=== PATIENT | male | born 1965 | race Caucasian/White ===

== ENCOUNTER 2018-06-01 14:47 | Inpatient (IN) | payer OTHER ==
[~2018-06-01] VITALS: Ht 175.3 cm; Wt 128.1 kg
[2018-06-01] MEDS ORDERED: ONDANSETRON PF 4 MG/2 ML VIAL. IV PRN (15:00)
[2018-06-01 15:05] VITALS: BP 113/81
[2018-06-01] MEDS: VANCOMYCIN PER PHARMACY MC PRN (15:08)
[2018-06-01] MEDS ORDERED: VALS80TA3 PO (16:44)
[2018-06-01] MEDS ORDERED: LOVA40TA2 PO (16:44)
[2018-06-01] MEDS ORDERED: HYDR12.58 PO (16:44)
[2018-06-01] MEDS: IV NORMAL SALINE 1,000ML 1,000 ML IV SCH ×2 (18:07→23:12)
[2018-06-01] MEDS ORDERED: ZOLPIDEM 5 MG TABLET. PO PRN (18:30)
[2018-06-01 19:48] VITALS: BP 113/76
[2018-06-01] MEDS: ACETAMINOPHEN 325 MG TABLET PO PRN (19:58)
[2018-06-01 23:25] VITALS: BP 124/78
[2018-06-02] MEDS: ACETAMINOPHEN 325 MG TABLET PO PRN ×2 (00:20→06:08)
[2018-06-02] MEDS: IV NORMAL SALINE 1,000ML 1,000 ML IV SCH ×3 (06:09→20:35)
[2018-06-02 06:11] VITALS: BP 127/87
[2018-06-02 06:47] LABS: BASO # 0.1 x10^3/uL (0.0-0.2); BASO % 0 % (0-3); EOS % 0 % (0-3); HEMATOCRIT 43.2 % (39.0-53.0); HEMOGLOBIN 14.3 g/dL (13.0-17.5); LYMPH # 1.3 x10^3/uL (1.0-4.8); LYMPH % 7 % (24-48); MEAN CORPUSCULAR HEMOGLOBIN 30 pg (25-35); MEAN CORPUSCULAR HGB CONC 33 g/dL (31-37); MEAN CORPUSCULAR VOLUME 91 fL (79-100); MONO # 1.1 x10^3/uL (0.0-1.1); MONO % 5 % (0-9); NEUT # 17.2 x10^3uL (1.8-7.7); NEUT % 88 % (31-73); PLATELET COUNT 148 x10^3/uL (140-400); RED BLOOD COUNT 4.74 x10^6/uL (4.30-5.70); RED CELL DISTRIBUTION WIDTH 15.4 % (11.5-14.5); WHITE BLOOD COUNT 19.6 x10^3/uL (4.0-11.0)
[2018-06-02 07:13] LABS: CALCIUM 8.1 mg/dL (8.5-10.1); CREATININE 1.6 mg/dL (0.7-1.3); GFR 45.1; POTASSIUM 3.8 mmol/L (3.5-5.1)
[2018-06-02] MEDS: oxyCODONE/APAP 7.5/325 1 TAB TABLET PO PRN ×3 (08:11→20:33)
[2018-06-02] MEDS: hydroCHLOROthiazide 12.5 MG CAPSULE PO SCH (08:40)
[2018-06-02] MEDS: amLODIPine BESYLATE 10 MG TABLET PO SCH ×2 (08:41→09:00)
[2018-06-02] MEDS: LOSARTAN 50 MG TABLET. PO SCH (08:42)
[2018-06-02] MEDS ORDERED: NON FORMULARY ITEM (Hydrochlorothiazide (Hydrochlorothiazide Tablet) 1 TAB) PO SCH (09:00)
--- NOTE | 2018-06-02 10:55 | PN ---
DATE: 06/02/2018 SUBJECTIVE: The patient is in with lymphangitis and cellulitis to the right lower leg as well as sepsis. The patient is on double antibiotics of vancomycin and Levaquin since he is allergic to PENICILLIN. He says he is feeling better. PHYSICAL EXAMINATION: His temperature is still up there about 100.4, pulse up to 112, blood pressure 120/70, respiratory rate 18, afebrile. GENERAL: The patient is alert and oriented x 3. LUNGS: Clear. CARDIOVASCULAR: Stable. EXTREMITIES: Redness in the right lower leg really has not moved too much one way or the other. Continue on IV antibiotic therapy. ABDOMEN: Soft, nontender. Blood cultures are still pending. He had a white count yesterday still elevated at 19,000 with left shift. Continue with IV antibiotic therapy, aggressive situation there with his anticoagulation, I should say. A V/Q scan is still pending. Positive D-dimer. I also ordered a V/Q scan as well as venous Dopplers. IMPRESSION: Cellulitis to the right lower leg, sepsis, lymphangitis of the right leg, positive D-dimer. PLAN: Continue to monitor the patient. Continue aggressive pulmonary toilet and IV antibiotic therapy. MAX HOLMAN MD DR: BRAULIO/ev JOB#: [id number] / [id number]
[2018-06-02 11:00] VITALS: BP 137/93
--- NOTE | 2018-06-02 12:09 | RAD ---
EXAM: Right lower extremity venous Doppler sonogram. HISTORY: Swelling. TECHNIQUE: Sánchez scale and color Doppler sonographic evaluation of the right lower extremity veins with spectral waveform analysis was performed. FINDINGS: There is normal color flow, normal compressibility and there are normal spectral waveforms in the right lower extremity veins. There are prominent right inguinal lymph nodes. IMPRESSION: 1. No Doppler evidence of lower extremity deep venous thrombosis. 2. Prominent right inguinal lymph nodes, likely reactive in etiology. Electronically signed by: Isabel Rothman MD (06/02/2018 12:06 PM) [facility] [place]
--- NOTE | 2018-06-02 12:41 | RAD ---
Examination: 2 views of the chest HISTORY: History of elevated d-dimer, PICC line COMPARISON: 05/07/2013 FINDINGS: Low lung volumes and technique accentuates heart size and pulmonary vascularity. Mild bibasilar lung airspace opacities likely atelectasis or infiltrates. Left-sided PICC line identified with tip projecting in the region of the SVC. IMPRESSION: 1. Mild bibasilar lung airspace opacities likely atelectasis or infiltrates. Electronically signed by: Keon Salas MD (06/02/2018 12:38 PM) [facility]
--- NOTE | 2018-06-02 13:17 | RAD ---
VQ Scan: Clinical History: Elevated d-dimer COMPARISON: Radiograph same day exam.. Technique: 14.6 mCi xenon-133 inhalation was administered as an aerosol and spot views were obtained on a gamma camera for a Nuclear Medicine ventilation examination. 5.5 mCi of Tc 99m MAA was administered intravenously and spot views were obtained on the gamma camera for a Nuclear Medicine perfusion examination. Static images were reviewed as a V/Q scan. Findings: There is mild retention of the radiotracer on ventilation images of the washout phase. Perfusion images are homogeneous without perfusion defects. Impression: 1. Very low probability for pulmonary embolism. 2. Minimal retention of radiotracer on the ventilation images on the washout phase likely due to airway disease. Electronically signed by: Keon Salas MD (06/02/2018 1:13 PM) [facility]
[2018-06-02] MEDS: HEPARIN PF for SUB-Q USE 5,000 UNIT/0.5 ML VIAL. SQ SCH ×3 (13:51→22:00)
[2018-06-02] MEDS: VANCOMYCIN 2 GM in IV NORMAL SALINE 500ML 500 ML IV SCH (14:30)
[2018-06-02 15:00] VITALS: BP 135/85
[2018-06-02 19:41] VITALS: BP 132/89
[2018-06-03] MEDS: IV NORMAL SALINE 1,000ML 1,000 ML IV SCH ×3 (01:29→14:49)
[2018-06-03] MEDS: oxyCODONE/APAP 7.5/325 1 TAB TABLET PO PRN ×2 (03:39→12:08)
[2018-06-03 04:54] VITALS: BP 140/97
[2018-06-03] MEDS: HEPARIN PF for SUB-Q USE 5,000 UNIT/0.5 ML VIAL. SQ SCH ×3 (06:00→20:35)
[2018-06-03 06:14] LABS: CALCIUM 8.3 mg/dL (8.5-10.1); CREATININE 1.5 mg/dL (0.7-1.3); GFR 48.6; POTASSIUM 4.1 mmol/L (3.5-5.1)
[2018-06-03 06:18] LABS: BASO % 0 % (0-3); EOS # 0.1 x10^3/uL (0.0-0.7); EOS % 1 % (0-3); HEMATOCRIT 41.7 % (39.0-53.0); HEMOGLOBIN 13.8 g/dL (13.0-17.5); LYMPH # 1.5 x10^3/uL (1.0-4.8); LYMPH % 13 % (24-48); MEAN CORPUSCULAR HEMOGLOBIN 30 pg (25-35); MEAN CORPUSCULAR HGB CONC 33 g/dL (31-37); MEAN CORPUSCULAR VOLUME 92 fL (79-100); MONO % 10 % (0-9); NEUT # 8.4 x10^3uL (1.8-7.7); NEUT % 76 % (31-73); PLATELET COUNT 162 x10^3/uL (140-400); RED BLOOD COUNT 4.55 x10^6/uL (4.30-5.70); RED CELL DISTRIBUTION WIDTH 15.8 % (11.5-14.5)
[2018-06-03] MEDS: amLODIPine BESYLATE 10 MG TABLET PO SCH ×2 (09:00→12:09)
[2018-06-03] MEDS: LOSARTAN 50 MG TABLET. PO SCH (09:05)
[2018-06-03] MEDS: hydroCHLOROthiazide 12.5 MG CAPSULE PO SCH (09:05)
[2018-06-03 11:00] VITALS: BP 151/92
[2018-06-03 14:30] LABS: VANC TR 7.4 mcg/mL (10.0-20.0)
[2018-06-03] MEDS: VANCOMYCIN 2 GM in IV NORMAL SALINE 500ML 500 ML IV SCH ×2 (14:30→15:11)
[2018-06-03 15:00] VITALS: BP 175/133
[2018-06-03] MEDS: VANCOMYCIN PER PHARMACY MC PRN (15:13)
[2018-06-03 19:18] VITALS: BP 154/99
[2018-06-03] MEDS ORDERED: hydrALAZINE 20 MG/ML VIAL. IV PRN (19:30)
[2018-06-03] MEDS ORDERED: POLYETHYLENE GLYCOL 3350 17 GM PACKET. PO PRN (19:30)
[2018-06-03] MEDS: DOCUSATE SODIUM 100 MG CAPSULE PO SCH (20:35)
--- NOTE | 2018-06-03 21:10 | PN ---
DATE: 06/03/2018 SUBJECTIVE: This is a 53-year-old gentleman with cellulitis to his right leg in the right upper thigh with lymphangitis. He is doing better. The area of redness has decreased. White count has come down from 19,000 down to 11. OBJECTIVE: VITAL SIGNS: Blood pressure that of 175/133, pulse 85, temperature 98.1, respiratory rate 20. EXTREMITIES: As described, the area of redness is decreased significantly and showing some good signs of improvement, although still markedly inflamed in Monday. We will have him ready. PICC line is in place. Possible discharge. IMPRESSION: Cellulitis to the right leg, lymphangitis, sepsis, chronic kidney disease 3. PLAN: As above. Continue with IV antibiotic therapy. MAX HOLMAN MD DR: BRAULIO/ev JOB#: [id number] / [id number]
[2018-06-03 22:36] VITALS: BP 134/87
[2018-06-04] MEDS: VANCOMYCIN 2 GM in IV NORMAL SALINE 500ML 500 ML IV SCH ×2 (03:03→15:44)
[2018-06-04] MEDS: HEPARIN PF for SUB-Q USE 5,000 UNIT/0.5 ML VIAL. SQ SCH ×2 (05:22→14:00)
[2018-06-04 05:41] VITALS: BP 155/95
[2018-06-04] MEDS: LOSARTAN 50 MG TABLET. PO SCH (09:00)
[2018-06-04] MEDS: DOCUSATE SODIUM 100 MG CAPSULE PO SCH (09:02)
[2018-06-04] MEDS: hydroCHLOROthiazide 12.5 MG CAPSULE PO SCH (09:02)
[2018-06-04] MEDS ORDERED: VANC1VIA3 MC (09:11)
[2018-06-04] MEDS ORDERED: VANC1.5P26 IV (09:11)
[2018-06-04 09:41] LABS: BASO % 1 % (0-3); EOS # 0.1 x10^3/uL (0.0-0.7); EOS % 2 % (0-3); HEMOGLOBIN 13.5 g/dL (13.0-17.5); LYMPH % 17 % (24-48); MEAN CORPUSCULAR HEMOGLOBIN 30 pg (25-35); MEAN CORPUSCULAR HGB CONC 33 g/dL (31-37); MEAN CORPUSCULAR VOLUME 91 fL (79-100); MONO # 0.5 x10^3/uL (0.0-1.1); MONO % 8 % (0-9); NEUT # 4.3 x10^3uL (1.8-7.7); NEUT % 72 % (31-73); PLATELET COUNT 173 x10^3/uL (140-400); RED BLOOD COUNT 4.52 x10^6/uL (4.30-5.70); RED CELL DISTRIBUTION WIDTH 15.5 % (11.5-14.5)
[2018-06-04 09:45] LABS: CALCIUM 7.9 mg/dL (8.5-10.1); CREATININE 1.3 mg/dL (0.7-1.3); GFR 57.3; POTASSIUM 3.6 mmol/L (3.5-5.1)
[2018-06-04 10:29] VITALS: BP 143/88
[2018-06-04 15:12] VITALS: BP 146/94
--- NOTE | 2018-06-04 19:18 | DS ---
DATE OF DISCHARGE: 06/04/2018 HOSPITAL COURSE: A 53-year-old gentleman who came in with sepsis, lymphangitis to his right leg as well as cellulitis to the right lower leg. White count 20,000. His lactic acid was elevated at 2.2, came down. The patient's calcium was slightly low at 7.9. The patient made good progress during the rest of his hospitalization. He had been placed on vancomycin as well as Zosyn, made good progress. PICC line placed. The patient's right lower extremity negative for a blood clot, pulmonary perfusion test was negative for that low probability of embolism. The patient made excellent progress during the rest of his hospitalization. He was discharged home. He will be followed up as an outpatient and make further evaluation on him as indicated. IMPRESSION: Cellulitis to the right lower leg, sepsis to that individual secondary to infection, lymphangitis, morbid obesity, elevated D-dimer, and acute renal failure. The patient will be discharged home, regular diet, decreased activity for now. He will be coming in next 10 days for IV antibiotic therapy until that leg has healed up better. We will make further evaluation on him as indicated. MAX HOLMAN MD DR: BRAULIO/ev JOB#: [id number] / [id number]
== END 2018-06-04 18:09 | disposition home or self-care (01) | DRG 872 ==
LOC: 1 SOUTH 14:47
PROVIDERS: ADMIT Family Medicine; ATTEND Family Medicine
PROC: 02HV33Z Insertion of Infusion Device into Superior Vena Cava, Percutaneous Approach (ICD-10-PCS; principal; 2018-06-02)
DX: A41.9 Sepsis, unspecified organism (principal); L03.115 Cellulitis of right lower limb; N17.9 Acute kidney failure, unspecified; L03.125 Acute lymphangitis of right lower limb; E66.01 Morbid (severe) obesity due to excess calories; N18.3 Chronic kidney disease, stage 3 (moderate); R79.1 Abnormal coagulation profile; Z88.0 Allergy status to penicillin; Z79.899 Other long term (current) drug therapy
CPT/HCPCS: 36415; 71046; 78582; 80048; 80202; 83605; 85025; 85379; 85651; 93971; 96374; A9540; A9558; J1956; J2405; J3370; J7040; J7030

== ENCOUNTER 2019-04-08 22:35 | Observation (INO) | payer OTHER ==
[~2019-04-08] VITALS: Ht 175.3 cm; Wt 128.2 kg
[~2019-04-08 22:35] MED LIST: HYDR12.58 PO; LOVA40TA2 PO; VALS80TA3 PO; VANC1VIA3 MC; [UNRECOGNIZED DRUG - CODE] IV
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
[2019-04-08] MEDS ORDERED: MORPHINE SULFATE 10 MG/ML SYRINGE. SQ ONE (23:00)
[2019-04-08] MEDS ORDERED: IV RINGERS SOLUTION,LACTATED 1,000 ML IV SCH ×2 (23:00)
[2019-04-08] MEDS ORDERED: IPRATRPIUM/ALBUTEROL 0.5/2.5MG 3 ML NEBU. NEB ONE (23:00)
[2019-04-08] MEDS ORDERED: ASPIRIN 81 MG TAB.CHEW PO ONE (23:00)
[2019-04-08 23:53] LABS: BASO # 0.1 x10^3/uL (0.0-0.2); BASO % 1 % (0-3); EOS # 0.1 x10^3/uL (0.0-0.7); EOS % 1 % (0-3); HEMATOCRIT 49.1 % (39.0-53.0); LYMPH # 2.9 x10^3/uL (1.0-4.8); LYMPH % 29 % (24-48); MEAN CORPUSCULAR HEMOGLOBIN 30 pg (25-35); MEAN CORPUSCULAR HGB CONC 33 g/dL (31-37); MEAN CORPUSCULAR VOLUME 92 fL (79-100); MONO # 1.1 x10^3/uL (0.0-1.1); MONO % 11 % (0-9); NEUT # 5.9 x10^3uL (1.8-7.7); NEUT % 59 % (31-73); PLATELET COUNT 203 x10^3/uL (140-400); RED BLOOD COUNT 5.36 x10^6/uL (4.30-5.70); RED CELL DISTRIBUTION WIDTH 15.3 % (11.5-14.5); WHITE BLOOD COUNT 10.2 x10^3/uL (4.0-11.0)
[2019-04-09] MEDS ORDERED: IV RINGERS SOLUTION,LACTATED 1,000 ML IV ONE ×2 (01:00→02:15)
[2019-04-09] MEDS ORDERED: ENOXAPARIN ** NOTE DOSE ** SYRINGE SQ ONE (01:30)
[2019-04-09 01:41] LABS: ALBUMIN 3.7 g/dL (3.4-5.0); CALCIUM 9.3 mg/dL (8.5-10.1); CREATININE 1.4 mg/dL (0.7-1.3); DIRECT BILIRUBIN 0.2 mg/dL (0.0-0.2); GFR 52.4; MAGNESIUM 1.6 mg/dL (1.8-2.4); POTASSIUM 3.4 mmol/L (3.5-5.1); TOTAL BILIRUBIN 0.6 mg/dL (0.2-1.0); TOTAL PROTEIN 7.2 g/dL (6.4-8.2)
[2019-04-09 01:51] LABS: AMPHETAMINE/METHAMPHETAMINE NEG (NEG); BARBITURATES NEG (NEG); BENZODIAZEPINES NEG (NEG); CANNABINOIDS NEG (NEG); COCAINE NEG (NEG); METHADONE NEG (NEG); OPIATES POS (NEG); PHENCYCLIDINE NEG (NEG)
[2019-04-09 01:55] LABS: BACTERIA,URINE 0 /HPF (0-FEW); BILIRUBIN,URINE NEG (NEG); CLARITY,URINE CLEAR; COLOR,URINE YELLOW; GLUCOSE,URINE NEG (NEG); NITRITE,URINE NEG (NEG); RBC,URINE 0 /HPF (0-2); SQUAMOUS EPITHELIAL CELL,UR OCC /LPF; UROBILINOGEN,URINE 0.2 mg/dL (0.2 mg/dL); WBC,URINE RARE /HPF (0-4)
[2019-04-09] MEDS ORDERED: CONTRAST GIVEN MC PRN (02:15)
[2019-04-09] MEDS ORDERED: MORPHINE SULFATE 10 MG/ML SYRINGE. SQ ONE (02:30)
[2019-04-09] MEDS ORDERED: MAGNESIUM SULFATE 2GM 50 ML IV ONE (02:30)
[2019-04-09] MEDS ORDERED: ONDANSETRON PF 4 MG/2 ML VIAL. IV PRN (02:30)
[2019-04-09] MEDS ORDERED: IOHEXOL 240 MG/ML 50ML VIAL. PO ONE (02:30)
[2019-04-09] MEDS ORDERED: IOHEXOL 350 MG/ML 100 ML VIAL. IV ONE ×2 (02:30)
[2019-04-09] MEDS ORDERED: MORPHINE SULFATE 10 MG/ML SYRINGE. SQ PRN (02:30)
[2019-04-09 03:00] VITALS: BP 145/85
--- NOTE | 2019-04-09 03:35 | RAD ---
PQRS Compliance statement: One or more of the following individualized dose reduction techniques were utilized for this examination: 1. Automated exposure control. 2. Adjustment of the mA and/or kV according to patient size. 3. Use of iterative reconstruction technique. Indication:Chest and upper abdominal pain. Elevated d-dimer. TECHNIQUE: CT angiogram chest and CT abdomen and pelvis with IV contrast with multiplanar reformats. COMPARISON: None FINDINGS: Diagnostic quality PE study. There are no central, segmental or subsegmental filling defects in the pulmonary arteries. Heart is normal in size. No pericardial or pleural effusion. No enlarged axillary adenopathy. Shotty mediastinal lymph nodes, nonspecific likely reactive. No hilar adenopathy. Lungs are clear. Bilateral anterior healing rib fractures. Liver, spleen, gallbladder, pancreas, adrenals within normal limits. 1 cm nonobstructing stone seen in the right renal pelvis. No hydronephrosis. No enlarged retroperitoneal or pelvic adenopathy. No free pelvic fluid or ascites. Prostate is nonenlarged. No bowel obstruction. Normal appendix. Urinary bladder demonstrates mild circumferential wall thickening. No pneumoperitoneum. No suspicious bony lesion. IMPRESSION: 1. No PE. No pneumonia. 2. Nonobstructing right renal pelvis stone. Electronically signed by: Frederic Oden DO (04/09/2019 3:32 AM) [facility]
--- NOTE | 2019-04-09 03:45 | RAD ---
CHEST PA LATERAL CLINICAL INDICATION: Chest pain. COMPARISON: 06/02/2018 FINDINGS: Heart is normal in size. Lungs are clear. No pneumothorax or effusion. Visualized bony thorax within normal limits. IMPRESSION: No acute pulmonary process. Electronically signed by: Frederic Oden DO (04/09/2019 3:42 AM) [facility]
--- NOTE | 2019-04-09 03:46 | RAD ---
Indication: Upper abdominal pain TECHNIQUE: Multiple AP views of the abdomen and pelvis COMPARISON: None FINDINGS: No abnormally dilated bowel loops or air-fluid levels. Right renal pelvis 1 cm stone noted. No significant colonic stool burden. Visualized bones are within normal limits. IMPRESSION: No evidence of high-grade bowel obstruction. Right renal pelvis stone. Electronically signed by: Frederic Oden DO (04/09/2019 3:43 AM) [facility]
[2019-04-09] MEDS: IV RINGERS SOLUTION,LACTATED 1,000 ML IV SCH ×3 (05:15→11:58)
[2019-04-09 06:51] VITALS: BP 127/90
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
[2019-04-09 07:47] LABS: ALBUMIN 3.2 g/dL (3.4-5.0); CALCIUM 8.7 mg/dL (8.5-10.1); CREATININE 1.2 mg/dL (0.7-1.3); GFR 62.6; MAGNESIUM 1.9 mg/dL (1.8-2.4); POTASSIUM 3.7 mmol/L (3.5-5.1); TOTAL BILIRUBIN 0.6 mg/dL (0.2-1.0); TOTAL PROTEIN 6.3 g/dL (6.4-8.2)
[2019-04-09] MEDS: IPRATRPIUM/ALBUTEROL 0.5/2.5MG 3 ML NEBU. NEB SCH ×3 (08:00→10:38)
--- NOTE | 2019-04-09 08:15 | EKG ---
[address] [address] Test Date: 2019-04-08 Test Time: 22:54:23 Pat Name: AC SMITH Department: Room: Gender: M Sourcing Consultant: KATHI : [id number] Requested By: GUSTABO CALDERA Order Number: [id number] Reading MD: Measurements Intervals [place] Rate: 106 P: 35 ID: [id number] QRS: -27 QRSD: 86 T: 12 QT: 338 QTc: 451 Interpretive Statements SINUS TACHYCARDIA LEFTWARD AXIS QRS(T) CONTOUR ABNORMALITY CONSIDER ANTEROLATERAL MYOCARDIAL DAMAGE POSSIBLY ABNORMAL ECG RI6.01 No previous ECG available for comparison
[2019-04-09] MEDS: MORPHINE SULFATE 4 MG/ML DISP.SYRIN. IV PRN ×2 (08:48→15:45)
[2019-04-09] MEDS ORDERED: hydroCHLOROthiazide 12.5 MG CAPSULE PO SCH (09:00)
[2019-04-09] MEDS ORDERED: LOSARTAN 50 MG TABLET. PO SCH (09:00)
[2019-04-09 10:58] VITALS: BP 147/75
--- NOTE | 2019-04-09 11:37 | RAD ---
CT LUMBAR SPINE RECONSTRUCTION Indication: Pain into the left leg Technique: Multiplanar reconstruction images of the lumbar spine submitted. One or more of the following individualized dose reduction techniques were utilized for this examination: 1. Automated exposure control 2. Adjustment of the mA and/or kV according to patient size 3. Use of iterative reconstruction technique. Comparison: None Findings: Lumbar vertebral body stature and AP alignment are maintained. There is mild degenerative disc disease greater posteriorly at L4-5. There is multilevel facet degenerative change. There is minimal disc osteophyte complex at L4-5 indenting the ventral thecal sac in the lateral recesses with likely mild to moderate narrowing of the far lateral recesses bilaterally. No other significant spinal stenosis is identified on this nonmyelographic exam. There is left L2 spondylolysis, no spondylolisthesis. There is multilevel facet degenerative change which contributes to moderate to severe narrowing of the left L5-S1 neural foramen and moderate narrowing on the right. There is mild narrowing of the left L4-5 and L3-4 neural foramina. There is minimal multilevel thoracic spondylosis. There are some fused osteophytes about the anterior sacroiliac joints bilaterally. There is a calculus of the right renal pelvis about 1 cm in size. IMPRESSION: 1. There is mild to moderate narrowing of the far lateral recesses bilaterally at L4-5 by facet degenerative change in combination with disc osteophyte complex. There is left greater than right L5-S1 neural foramina compromise due to facet degenerative change. 2. There is left L2 spondylolysis, no spondylolisthesis at this level. Electronically signed by: Genaro Munson MD (04/09/2019 11:34 AM) [id number]
--- NOTE | 2019-04-09 11:57 | RAD ---
CT of the thoracic spine without contrast, 04/09/2019: HISTORY: Left leg radiculopathy Noncontrast scans were obtained with multiplanar reconstructions produced. There is moderate anterior spurring throughout the thoracic spine with bony bridging at multiple levels in the mid and lower thoracic spine. There is a mild superior endplate deformity at approximately the T3 level. No acute fracture line is seen. There are mild degenerative changes involving scattered facet joints bilaterally. The posterior disc margins are not clearly seen. No significant central spinal stenosis is evident. The paraspinous soft tissues are unremarkable. There is minimal pleural thickening posteriorly in the right chest. IMPRESSION: 1. Moderate scattered hypertrophic degenerative changes. 2. Mild T3 superior endplate deformity which is probably old. PQRS Compliance Statement: One or more of the following individualized dose reduction techniques were utilized for this examination: 1. Automated exposure control 2. Adjustment of the mA and/or kV according to patient size 3. Use of iterative reconstruction technique Electronically signed by: Shade Alex MD (04/09/2019 11:55 AM) [facility]
--- NOTE | 2019-04-09 13:02 | RAD ---
Examination: Lower Extremity Venous Doppler Ultrasound History: Elevated d-dimer, leg edema Comparison: 06/02/2018 Procedure: Sánchez scale, color flow 2D and spectal waveform analysis images are obtained with and without compression in the area of the common femoral vein, superficial femoral vein - femoral vein junction, main femoral vein (superficial femoral vein) and popliteal vein. Veins of the proximal calf are also imaged. Findings: There is normal duplex flow, color flow and compressibility of all visualized vein segments. No evidence of deep venous thrombus is present. Impression: No evidence of DVT in the bilateral lower extremity venous system. Electronically signed by: Keon Salas MD (04/09/2019 12:59 PM) [place] [id number]
[2019-04-09 13:10] LABS: THYROID STIM HORMONE (TSH) 2.946 uIU/mL (0.358-3.740)
[2019-04-09] MEDS ORDERED: DEXAMETHASONE SOD PHOS 4 MG/ML VIAL IV ONE (15:00)
--- NOTE | 2019-04-09 15:13 | CARD ---
MR#: [id number] Date of Study: 04/09/2019 Ordering Physician: WARD HARRY, Referring Physician: MAX HOLMAN, Tech: Geraldine Roland APPROVED REPORT EXAM: Two-dimensional and M-mode echocardiogram with Doppler and color Doppler. Other Information Quality : AverageHR: 75bpm Technically limited study due to body habitus and smoking. INDICATION Chest Pain 2D DIMENSIONS RVDd3.2 (2.9-3.5cm)Left Atrium(2D)4.0 (1.6-4.0cm) IVSd1.4 (0.7-1.1cm)Aortic Root(2D)3.0 (2.0-3.7cm) LVDd4.2 (3.9-5.9cm)LVOT Diameter2.2 (1.8-2.4cm) PWd1.3 (0.7-1.1cm)LVDs3.1 (2.5-4.0cm) FS (%) 26.0 %SV41.3 ml LVEF(%)51.4 (>50%) Aortic Valve AoV Peak Yusuf.120.2cm/sAoV VTI22.5cm AO Peak GR.5.8mmHgLVOT Peak Yusuf.94.6cm/s LVOT VTI 19.30cmAO Mean GR.4mmHg ANGELINE (VMAX)2.74vj5OGK (VTI)3.12cm2 Mitral Valve MV E Kzxcyfin81.9cm/sMV DECEL GFZD298lu MV A Dheagnpa78.1cm/sE/A Ratio1.3 Pulmonary Valve PV Peak Uazkuhwc11.3cm/sPV Peak Grad.4mmHg Tricuspid Valve TR P. Syhwaanf346xw/sRAP MAJRPMNH9obQk TR Peak Gr.72tiArYIIM49ykRm Pulmonary Vein S1 Srahigvz98.4cm/sD2 Migeivjz59.6cm/s LEFT VENTRICLE The left ventricle is normal size. There is moderate concentric left ventricular hypertrophy. The lef t ventricular systolic function is low normal The Ejection Fraction is 50%. Transmitral Doppler flow pattern is Grade II-pseudonormal filling dynamics. RIGHT VENTRICLE The right ventricle is normal size. There is normal right ventricular wall thickness. The right ventr icular systolic function is normal. ATRIA The left atrium size is normal. The right atrium size is normal. The interatrial septum is intact wit h no evidence for an atrial septal defect or patent foramen ovale as noted on 2-D or Doppler imaging. AORTIC VALVE The aortic valve is normal in structure and function. Doppler and Color Flow revealed no significant aortic regurgitation. There is no significant aortic valvular stenosis. MITRAL VALVE The mitral valve is normal in structure and function. There is no evidence of mitral valve prolapse. There is no mitral valve stenosis. Doppler and Color Flow revealed no mitral valve regurgitation note d. TRICUSPID VALVE The tricuspid valve is normal in structure and function. Doppler and Color Flow revealed trace tricus pid valve regurgitation. There is no tricuspid valve stenosis. PULMONIC VALVE The pulmonic valve is not well visualized. Doppler and Color Flow revealed no pulmonic valvular regur gitation. GREAT VESSELS The aortic root is normal in size. The IVC is normal in size and collapses >50% with inspiration. PERICARDIAL EFFUSION There is no evidence of significant pericardial effusion. Critical Notification Critical Value: No <Conclusion> Technically very difficult study. The left ventricular systolic function is low normal The Ejection Fraction is 50%. Trace tricuspid valve regurgitation. There is no evidence of significant pericardial effusion. Signed by : Dann German, Electronically Approved : 04/09/2019 15:12:54
[2019-04-09 15:51] VITALS: BP 147/95
[2019-04-09] MEDS ORDERED: ASPI-630 PO (17:11)
[2019-04-09] MEDS ORDERED: ATORVASTATIN CALCIUM 10 MG TABLET. PO SCH (21:00)
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
[2019-04-10] MEDS ORDERED: ASPIRIN ENTERIC COATED 81 MG TABLET.DR. PO SCH (08:00)
== END 2019-04-09 17:30 | disposition home or self-care (01) ==
LOC: ER 22:35 → ICU 22:50 → INTOOBSV 22:50
PROVIDERS: ADMIT Family Medicine; ATTEND Family Medicine
DX: R07.9 Chest pain, unspecified (principal); F41.9 Anxiety disorder, unspecified; I10 Essential (primary) hypertension; M19.90 Unspecified osteoarthritis, unspecified site; R10.9 Unspecified abdominal pain; E86.0 Dehydration; E83.42 Hypomagnesemia; G89.29 Other chronic pain; E87.6 Hypokalemia; Z87.442 Personal history of urinary calculi; Z85.828 Personal history of other malignant neoplasm of skin
CPT/HCPCS: 36415; 71046; 71275; 72128; 74021; 74174; 80048; 80053; 80061; 80076; 80307; 81001; 82150; 82553; 82947; 83690; 83735; 83880; 84443; 84484; 85025; 85379; 85610; 85651; 85730; 87641; 93005; 93306; 93970; 94640; 96361; 96365; 96372; 96375; 96376; 99284; G0378; J1100; J2270; J3475; J7120; J7620; Q9966; Q9967; G0379; 99285-25

== ENCOUNTER 2019-10-14 07:34 | Emergency (ER) | payer OTHER ==
[~2019-10-14] VITALS: Ht 175.3 cm; Wt 124.6 kg
[~2019-10-14 07:34] MED LIST changes: +ASPI-630 PO; +VANC1.5P17 IV; -[UNRECOGNIZED DRUG - CODE] IV
[2019-10-14] MEDS ORDERED: LIDO:MAALOX 1:1 20 ML SINGLE DOSE. PO ONE (07:45)
--- NOTE | 2019-10-14 07:52 | PHYS DOC ---
Past History Past Medical History: Anxiety, Arthritis, Hypertension, Other Past Surgical History: Other Smoking: Cigarettes (1 pack per week) Alcohol Use: Occasionally Drug Use: None Adult General Chief Complaint Chief Complaint: CHEST PAIN HPI HPI Patient is a 54-year-old male, presents to the emergency department for evaluation. He states overnight, and into this morning, he has had "heartburn", described as a sharp pain in his epigastric area, radiating up into his chest, as well as towards his back. The pain has been intermittent. He has taken Tums, and drank some milk, things that usually help improve his heartburn, but that did not significantly improve his symptoms this morning. He called his physician, was instructed to take an aspirin, which he did, 81 mg, and was referred to the emergency department. He denies any exertional exacerbation of his chest pain, shortness of breath, diaphoresis, nausea, or vomiting. There are no alleviating or exacerbating factors to his symptoms, except as noted above. Assuming a negative troponin, the patient's HEART score is a 2. Review of Systems Review of Systems Constitutional: Denies fever or chills [] Eyes: Denies change in visual acuity, redness, or eye pain [] HENT: Denies nasal congestion or sore throat [] Respiratory: Denies cough or shortness of breath [] Cardiovascular: No additional information not addressed in HPI [] GI: Denies nausea, vomiting, bloody stools or diarrhea [] : Denies dysuria or hematuria [] Musculoskeletal: Denies back pain or joint pain [] Integument: Denies rash or skin lesions [] Neurologic: Denies headache, focal weakness or sensory changes [] Endocrine: Denies polyuria or polydipsia [] All other systems were reviewed and found to be within normal limits, except as documented in this note. Current Medications Current Medications Current Medications Medications (Trade) Dose Ordered Sig/Efren Start Time Stop Time Status Last Admin Dose Admin Multi-Ingredient Mouthwash/Gargle (Gi Cocktail) 20 ml 1X ONCE 10/14/19 07:45 10/14/19 07:46 UNV Allergies Allergies Allergies Coded Allergies Type Severity Reaction Last Updated Verified Penicillins Allergy Intermediate 04/08/19 Yes I S O L A T I O N *CONTACT* Allergy Unknown 04/10/19 Yes NSAIDS (Non-Steroidal Anti-Inflamma Adverse Reaction Severe 04/09/19 Yes Physical Exam Physical Exam PHYSICAL EXAM: CONSTITUTIONAL: Well developed, well nourished HEAD: normocephalic, atraumatic EENT: PERRL, EOMI. Conjunctivae normal color, sclerae non-icteric; moist mucous membranes. NECK: Supple, non-tender; no meningismus. LUNGS: Lungs CTA, breathing even and unlabored. Normal air movement. HEART: Regular rate and rhythm, no murmur CHEST: No deformity; non-tender ABDOMEN: The abdomen is soft, there is some epigastric tenderness to palpation which reproduces the patient's pain, the remainder of the abdomen is soft and non-tender, no masses or bruits. EXTREM: Normal ROM; no deformity, no calf tenderness. Normal pulses palpable in all extremities. There is no pedal edema. SKIN: No rash; no diaphoresis NEURO: Alert; normal speech and cognition; CN's grossly intact; strength grossly intact without focal deficit. BACK: No CVA TTP. Current Patient Data Lab Results Laboratory Tests Test 10/14/19 07:59 White Blood Count 6.4 x10^3/uL Red Blood Count 5.43 x10^6/uL Hemoglobin 16.5 g/dL Hematocrit 49.5 % Mean Corpuscular Volume 91 fL Mean Corpuscular Hemoglobin 31 pg Mean Corpuscular Hemoglobin Concent 33 g/dL Red Cell Distribution Width 14.9 % Platelet Count 199 x10^3/uL Neutrophils (%) (Auto) 54 % Lymphocytes (%) (Auto) 33 % Monocytes (%) (Auto) 11 % Eosinophils (%) (Auto) 1 % Basophils (%) (Auto) 1 % Neutrophils # (Auto) 3.4 x10^3uL Lymphocytes # (Auto) 2.1 x10^3/uL Monocytes # (Auto) 0.7 x10^3/uL Eosinophils # (Auto) 0.1 x10^3/uL Basophils # (Auto) 0.1 x10^3/uL Sodium Level 141 mmol/L Potassium Level 4.2 mmol/L Chloride Level 105 mmol/L Carbon Dioxide Level 26 mmol/L Anion Gap 10 Blood Urea Nitrogen 24 mg/dL Creatinine 1.4 mg/dL Estimated GFR (Cockcroft-Gault) 52.4 BUN/Creatinine Ratio 17 Glucose Level 109 mg/dL Calcium Level 10.6 mg/dL Total Bilirubin 0.6 mg/dL Aspartate Amino Transf (AST/SGOT) 24 U/L Alanine Aminotransferase (ALT/SGPT) 39 U/L Alkaline Phosphatase 110 U/L Troponin I Quantitative < 0.017 ng/mL ZH-Dtu-S-Type Natriuretic Peptide 52 pg/mL Total Protein 7.2 g/dL Albumin 3.8 g/dL Albumin/Globulin Ratio 1.1 Lipase 151 U/L Current Medications Medications (Trade) Dose Ordered Sig/Efren Route PRN Reason Start Time Stop Time Status Last Admin Dose Admin Multi-Ingredient Mouthwash/Gargle (Gi Cocktail) 20 ml 1X ONCE PO 10/14/19 07:45 10/14/19 08:23 DC 10/14/19 07:56 EKG EKG Normal sinus rhythm a rate of 94 bpm, left axis deviation, normal intervals. There are no acute ischemic ST/T changes.[] Radiology/Procedures Radiology/Procedures PROCEDURE: PORTABLE CHEST 1V Indication: Chest pain TECHNIQUE:Portable AP chest X-ray COMPARISON: 04/08/2019 FINDINGS: Heart is normal in size. Lungs are clear. No pneumothorax or pleural effusion. Visualized bony thorax within normal limits. Multiple old healed right rib fractures seen. IMPRESSION: No acute pulmonary process.[] Course & Med Decision Making Course & Med Decision Making Pertinent Labs and Imaging studies reviewed. (See chart for details) 9:10 AM: Patient's condition remained stable, he is feeling better. I had an extensive discussion with the patient about the limitations of ER cardiac evaluation in definitively ruling out acute coronary syndrome. We discussed limitation of the ER evaluation and a singe ED troponin in r/o AMI, and the risks involved in missed diagnosis of acute coronary syndrome including or permanent debility. I discussed overnight observation for further formal cardiac evaluation to rule out acute coronary syndrome. After expressing understanding of the limitations of ER cardiac evaluation, as well as the risks of missed diagnosis, the patient declined further cardiac evaluation at this time. The patient was mentally competent, and given opportunity to ask questions about the diagnosis and recommended plan of care. I stressed the importance of outpatient follow-up, and returning to the emergenc y department for new or worsening symptoms, or if the patient is agreeable to undergo further cardiac evaluation. Dragon Disclaimer Dragon Disclaimer This electronic medical record was generated, in whole or in part, using a voice recognition dictation system. Departure Departure: Impression: Primary Impression: Atypical chest pain Disposition: HOME, SELF-CARE Condition: STABLE Referrals: MAX HOLMAN MD (PCP) Patient Instructions: Chest Pain (Nonspecific), Diet for Gastroesophageal Reflux Disease, Adult, Gastroesophageal Reflux Disease, Adult Additional Instructions: Return to medical care for any new or worsening symptoms, development of increasing pain, shortness of breath, chest pain, or any other new or concerning symptoms. EDWARD VALDEZ MD Oct 14, 2019 07:52
--- NOTE | 2019-10-14 07:54 | EKG ---
[address] [address] Test Date: 2019-10-14 Test Time: 07:53:02 Pat Name: AC SMITH Department: Room: Gender: M Fisher Oyster: JONES : 1965 Requested By: EDWARD VALDEZ Order Number: [id number] Reading MD: Measurements Intervals [place] Rate: 94 P: 38 LA: 144 QRS: -24 QRSD: 92 T: 25 QT: 338 QTc: 428 Interpretive Statements SINUS RHYTHM LEFTWARD AXIS QRS(T) CONTOUR ABNORMALITY CONSIDER ANTEROSEPTAL MYOCARDIAL DAMAGE POSSIBLY ABNORMAL ECG RI6.01 Compared to ECG 04/08/2019 22:54:23 Sinus tachycardia no longer present ST (T wave) deviation no longer present
[2019-10-14 08:20] LABS: BASO # 0.1 x10^3/uL (0.0-0.2); BASO % 1 % (0-3); EOS # 0.1 x10^3/uL (0.0-0.7); EOS % 1 % (0-3); HEMATOCRIT 49.5 % (39.0-53.0); HEMOGLOBIN 16.5 g/dL (13.0-17.5); LYMPH # 2.1 x10^3/uL (1.0-4.8); LYMPH % 33 % (24-48); MEAN CORPUSCULAR HEMOGLOBIN 31 pg (25-35); MEAN CORPUSCULAR HGB CONC 33 g/dL (31-37); MEAN CORPUSCULAR VOLUME 91 fL (79-100); MONO # 0.7 x10^3/uL (0.0-1.1); MONO % 11 % (0-9); NEUT # 3.4 x10^3uL (1.8-7.7); NEUT % 54 % (31-73); PLATELET COUNT 199 x10^3/uL (140-400); RED BLOOD COUNT 5.43 x10^6/uL (4.30-5.70); RED CELL DISTRIBUTION WIDTH 14.9 % (11.5-14.5); WHITE BLOOD COUNT 6.4 x10^3/uL (4.0-11.0)
--- NOTE | 2019-10-14 08:23 | RAD ---
Indication: Chest pain TECHNIQUE:Portable AP chest X-ray COMPARISON: 04/08/2019 FINDINGS: Heart is normal in size. Lungs are clear. No pneumothorax or pleural effusion. Visualized bony thorax within normal limits. Multiple old healed right rib fractures seen. IMPRESSION: No acute pulmonary process. Electronically signed by: Frederic Oden DO (10/14/2019 8:20 AM) [facility]
[2019-10-14 08:43] LABS: ALBUMIN 3.8 g/dL (3.4-5.0); ALBUMIN/GLOBULIN RATIO 1.1 (1.0-1.7); CALCIUM 10.6 mg/dL (8.5-10.1); CREATININE 1.4 mg/dL (0.7-1.3); GFR 52.4; POTASSIUM 4.2 mmol/L (3.5-5.1); TOTAL BILIRUBIN 0.6 mg/dL (0.2-1.0); TOTAL PROTEIN 7.2 g/dL (6.4-8.2)
[2019-10-14 09:23] VITALS: BP 160/109
== END 2019-10-14 09:25 | disposition home or self-care (01) ==
LOC: ER 07:34
DX: R07.89 Other chest pain (principal); F41.9 Anxiety disorder, unspecified; M19.90 Unspecified osteoarthritis, unspecified site; I10 Essential (primary) hypertension; F17.210 Nicotine dependence, cigarettes, uncomplicated; Z88.0 Allergy status to penicillin; Z91.041 Radiographic dye allergy status; Z88.6 Allergy status to analgesic agent
CPT/HCPCS: 36415; 71045; 80053; 83690; 83880; 84484; 85025; 93005; 99285

== ENCOUNTER → 2019-11-04 | Outpatient (CLI) | payer OTHER ==
[2019-10-14 09:23] VITALS: BP 160/109
[2019-11-04] MEDS: IOHEXOL 350 MG/ML 100 ML VIAL. IV ONE (22:03)
--- NOTE | 2019-11-04 22:48 | RAD ---
Examination: CT ANGIOGRAPHY CHEST History: Elevated d-dimer, back pain Comparison/Correlation: None Findings: Axial images of the chest were obtained according to pulmonary arteriography protocol. Sagittal and coronal reformatted images were provided. Maximum intensity projection images were provided. Pulmonary arterial vasculature is normal with no thromboembolic disease. Thoracic aorta is unremarkable although not optimally opacified for arteriographic assessment. No pulmonary nodule or mass. No focal infiltrate. Multiple old rib fractures are present. Gallbladder fossa is unremarkable. Diverticulosis is present. Spurring of the thoracic spine noted. Small hiatal hernia. Impression: No pulmonary arterial thromboembolic disease or infiltrate. Hiatal hernia. PQRS Compliance Statement: One or more of the following individualized dose reduction techniques were utilized for this examination: 1. Automated exposure control 2. Adjustment of the mA and/or kV according to patient size 3. Use of iterative reconstruction technique Electronically signed by: Efraín Vernon MD (11/04/2019 10:45 PM) [facility]
== END | disposition home or self-care (01) ==
LOC: RAD 20:59
PROVIDERS: ATTEND Family Medicine
DX: K57.90 Diverticulosis of intestine, part unspecified, without perforation or abscess without bleeding (principal); K44.9 Diaphragmatic hernia without obstruction or gangrene; I10 Essential (primary) hypertension; F17.200 Nicotine dependence, unspecified, uncomplicated
CPT/HCPCS: 71275; Q9967

== ENCOUNTER → 2019-11-04 | Outpatient (CLI) | payer OTHER ==
[2019-10-14 09:23] VITALS: BP 160/109
--- NOTE | 2019-11-04 17:41 | RAD ---
Abdominal and Pelvis CT, Without Contrast: History: Right flank pain and hematuria Comparison: None. Procedure: Axial images are obtained of the abdomen and pelvis, without IV or oral contrast. Oral Contrast: No Findings: Evaluation of solid organs is limited without contrast. Liver: Normal. Spleen: Normal. Pancreas: Normal. Adrenal Glands: Normal. Kidneys: There is an 11 mm nonobstructive stone in the right renal pelvis. There is no free air or free fluid. There is no lymphadenopathy. The urinary bladder appears normal. There is no pericolonic inflammation identified. The appendix is normal. The gallbladder appears normal. There is a diverticulum arising from the second portion of the duodenum. There is a small fat-containing umbilical hernia. Impression: 11 mm nonobstructive stone in the right renal pelvis. No acute findings. End impression PQRS Compliance Statement: One or more of the following individualized dose reduction techniques were utilized for this examination: 1. Automated exposure control 2. Adjustment of the mA and/or kV according to patient size 3. Use of iterative reconstruction technique Electronically signed by: Jose C Cuevas III, MD (11/04/2019 5:38 PM) [id number]
[2019-11-04 17:54] LABS: BASO % 1 % (0-3); EOS # 0.1 x10^3/uL (0.0-0.7); EOS % 2 % (0-3); HEMATOCRIT 49.3 % (39.0-53.0); HEMOGLOBIN 16.2 g/dL (13.0-17.5); LYMPH # 2.5 x10^3/uL (1.0-4.8); LYMPH % 38 % (24-48); MEAN CORPUSCULAR HEMOGLOBIN 30 pg (25-35); MEAN CORPUSCULAR HGB CONC 33 g/dL (31-37); MEAN CORPUSCULAR VOLUME 92 fL (79-100); MONO # 0.8 x10^3/uL (0.0-1.1); MONO % 12 % (0-9); NEUT # 3.2 x10^3uL (1.8-7.7); NEUT % 48 % (31-73); PLATELET COUNT 204 x10^3/uL (140-400); RED BLOOD COUNT 5.35 x10^6/uL (4.30-5.70); RED CELL DISTRIBUTION WIDTH 15.3 % (11.5-14.5); WHITE BLOOD COUNT 6.8 x10^3/uL (4.0-11.0)
[2019-11-04 17:59] LABS: BILIRUBIN,URINE NEG (NEG); CLARITY,URINE CLEAR; COLOR,URINE YELLOW; GLUCOSE,URINE NEG (NEG)
[2019-11-04 18:00] LABS: BACTERIA,URINE 0 /HPF (0-FEW); NITRITE,URINE NEG (NEG); RBC,URINE OCC /HPF (0-2); SQUAMOUS EPITHELIAL CELL,UR OCC /LPF; UROBILINOGEN,URINE 0.2 mg/dL (0.2 mg/dL); WBC,URINE OCC /HPF (0-4)
[2019-11-04 18:08] LABS: ALBUMIN 3.6 g/dL (3.4-5.0); CREATININE 1.3 mg/dL (0.7-1.3); GFR 57.1; POTASSIUM 3.6 mmol/L (3.5-5.1); TOTAL BILIRUBIN 0.5 mg/dL (0.2-1.0); TOTAL PROTEIN 7.2 g/dL (6.4-8.2)
== END | disposition home or self-care (01) ==
LOC: CT 16:54
PROVIDERS: ATTEND Family Medicine
DX: N20.0 Calculus of kidney (principal); K57.90 Diverticulosis of intestine, part unspecified, without perforation or abscess without bleeding; K42.9 Umbilical hernia without obstruction or gangrene
CPT/HCPCS: 36415; 74176; 80053; 81001; 82550; 83690; 84484; 85025; 85379

== ENCOUNTER 2020-03-16 07:00 | Emergency (ER) | payer OTHER ==
[~2020-03-16] VITALS: Ht 177.8 cm; Wt 129.9 kg
[2020-03-16] MEDS ORDERED: IV NORMAL SALINE 1,000ML 1,000 ML IV ONE (07:15)
[2020-03-16] MEDS ORDERED: MORPHINE SULFATE 4 MG/ML DISP.SYRIN. ONE (07:28)
[2020-03-16] MEDS ORDERED: KETOROLAC 30 MG/ML VIAL. IVP ONE (07:30)
[2020-03-16] MEDS ORDERED: MORPHINE SULFATE 2 MG/ML DISP.SYRIN. IV ONE (07:30)
[2020-03-16] MEDS ORDERED: ONDANSETRON PF 4 MG/2 ML VIAL. IVP ONE (07:30)
--- NOTE | 2020-03-16 07:32 | PHYS DOC ---
Past History Past Medical History: Anxiety, Arthritis, High Cholesterol, Hypertension Past Surgical History: Other Additional Past Surgical Histo: left wrist surgery Smoking: Cigarettes Alcohol Use: Occasionally Drug Use: None General Adult EDM: Chief Complaint: FLANK PAIN HPI: HPI: 55-year-old male presents with right flank pain. He has been having intermittent pain for couple weeks. The patient's pain became much more intense yesterday and this morning. It is a deep cramping pain. He also felt like there was a spasm character to it last night. The patient cannot think of any particular inciting event. He has had episodes like this in the past. He had an extensive work-up including a cardiac work-up a year ago no significant findings were found. He does have a history of kidney stones. He has noticed possible hematuria within the last week. This is also intermittent. He denies dysuria or increased urinary frequency. Denies fever chills. Review of Systems: Review of Systems: Constitutional: Denies fever or chills Eyes: Denies change in visual acuity HENT: Denies nasal congestion or sore throat Respiratory: Denies cough or shortness of breath Cardiovascular: Denies chest pain or edema GI: Denies abdominal pain, nausea, vomiting, bloody stools or diarrhea : Denies dysuria Musculoskeletal: Right flank pain Integument: Denies rash Neurologic: Denies headache, focal weakness or sensory changes Endocrine: Denies polyuria or polydipsia Lymphatic: Denies swollen glands Psychiatric: Denies depression or anxiety Heart Score: Risk Factors: Risk Factors: DM, Current or recent (<one month) smoker, HTN, HLP, family history of CAD, obesity. Risk Scores: Score 0 - 3: 2.5% MACE over next 6 weeks - Discharge Home Score 4 - 6: 20.3% MACE over next 6 weeks - Admit for Clinical Observation Score 7 - 10: 72.7% MACE over next 6 weeks - Early Invasive Strategies Current Medications: Current Meds: Current Medications Medications (Trade) Dose Ordered Sig/Efren Start Time Stop Time Status Last Admin Dose Admin Morphine Sulfate (Morphine 2mg Syringe) 2 mg 1X ONCE 03/16/20 07:30 03/16/20 07:31 UNV Ondansetron HCl (Zofran) 4 mg 1X ONCE 03/16/20 07:30 03/16/20 07:31 UNV Sodium Chloride 1,000 ml @ 1,000 mls/hr 1X ONCE 03/16/20 07:15 03/16/20 08:14 Allergies: Allergies: Allergies Coded Allergies Type Severity Reaction Last Updated Verified Penicillins Allergy Intermediate 10/14/19 Yes I S O L A T I O N *CONTACT* Allergy Unknown 04/10/19 Yes NSAIDS (Non-Steroidal Anti-Inflamma Adverse Reaction Severe 10/14/19 Yes Physical Exam: PE: Constitutional: Well developed, obese, well nourished, no acute distress, non- toxic appearance. [] HENT: Normocephalic, atraumatic, bilateral external ears normal, oropharynx dry, no oral exudates, nose normal. [] Eyes: PERRLA, EOMI, conjunctiva normal, no discharge. [] Neck: Normal range of motion, no tenderness, supple, no stridor. [] Cardiovascular:Heart rate regular rhythm, no murmur [] Lungs & Thorax: Bilateral breath sounds clear to auscultation [] Abdomen: Bowel sounds normal, soft, no tenderness, no masses, no pulsatile masses. [] Skin: Warm, dry, no erythema, no rash. [] Back: No tenderness, no CVA tenderness. [] Extremities: No tenderness, no cyanosis, no clubbing, ROM intact, no edema. [] Neurologic: Alert and oriented X 3, normal motor function, normal sensory function, no focal deficits noted. [] Psychologic: Affect normal, judgement normal, mood normal. [] EKG: EKG: [] Radiology/Procedures: Radiology/Procedures: [] Impressions: PQRS Compliance Statement: One or more of the following individualized dose reduction techniques were utilized for this examination: 1. Automated exposure control 2. Adjustment of the mA and/or kV according to patient size 3. Use of iterative reconstruction technique CT abdomen/pelvis without contrast 03/16/2020 7:17 AM INDICATION: Right flank pain with history of stones COMPARISON: CT abdomen/pelvis 11/04/2019 TECHNIQUE: Multiple axial CT images of the abdomen and pelvis were obtained without intravenous contrast. Coronal and sagittal reformats are provided. FINDINGS: There is minimal consolidative change at the right lung base which may represent subsegmental atelectasis. Evaluation of solid abdominal viscera is limited by lack of intravenous contrast. Right paraesophageal lymph node measures 7 mm, stable from 11/04/2019. There is diffuse hypoattenuation of the hepatic parenchyma suggestive of hepatic steatosis. No suspicious hepatic lesions are visualized. Spleen, bilateral adrenal glands, pancreas and gallbladder are normal in appearance. There is a duodenal diverticulum which measures 1.9 x 1.5 cm. Abdominal aorta is normal in course and caliber. No pathologically enlarged lymph nodes are identified in abdomen and pelvis. There is no free fluid or free intraperitoneal air. There is moderate colonic diverticulosis without adjacent inflammatory changes. Small and large bowel are normal in caliber. There is no evidence for bowel obstruction. There are no pericolonic inflammatory changes. A normal, nondilated appendix is visualized without adjacent inflammatory changes. There is a small fat-containing umbilical hernia measuring 1.5 cm. There is mild hazy attenuation within the root of the small bowel mesentery without pathologically enlarged lymph nodes. There is a 1.2 cm lamellated calculus in the right renal pelvis without significant hydronephrosis. There is an additional 1 mm nonobstructing calculus in the interpolar right kidney. The right ureter is nondilated. Urinary bladder is within normal limits in degree of distention, although there is mild lipomatous infiltration of the bladder wall. Prostate and seminal vesicles are normal. There are no suspicious osseous lesions identified. IMPRESSION: 1. There is a 1.2 cm calculus in the right renal pelvis without significant hydronephrosis or hydroureter. Consideration may be given for intermittent obstruction. There is an additional 1 mm nonobstructing calculus in interpolar right kidney. 2. Mild hazy attenuation in the root of small bowel mesentery appears new from prior examination and may be associated with mesenteric adenitis. 3-6 month follow-up CT abdomen/pelvis may be of benefit to assess for resolution. 3. Small duodenal diverticulum. 4. Diffuse hepatic steatosis. 5. There is subsegmental atelectasis versus developing infiltrate at the right lung base. Electronically signed by: Merlin Montanez MD (03/16/2020 8:48 AM) [id number] DICTATED AND SIGNED BY: MERLIN MONTANEZ MD DATE: 03/16/20 0848 CC: ROMARIO OJEDA DO; MAX HOLMAN MD ~ Course & Med Decision Making: Course & Med Decision Making Pertinent Labs and Imaging studies reviewed. (See chart for details) The patient's labs are unremarkable. His CT does show large calculus to the right kidney pelvis, 1.2 cm. No significant hydronephrosis. This could be intermittently obstructing. See official report for more details. There is also some evidence of mesenteric adenitis. Follow-up is recommended. The patient was given a liter normal saline, 30 mg of Toradol, and 2 mg of morphine for his discomfort. Urinalysis is pending. His urinalysis is negative for infection. I have advised that the patient follow-up with urology to discuss his large kidney stone and treatment options. He is stable for discharge at this time. [] Dragon Disclaimer: Dragon Disclaimer: This electronic medical record was generated, in whole or in part, using a voice recognition dictation system. Departure Departure: Impression: Primary Impression: Right nephrolithiasis Disposition: HOME, SELF-CARE Condition: STABLE Referrals: MAX HOLMAN MD (PCP) Patient Instructions: Kidney Stones, Sazl-rb-Pidn Scripts Hydrocodone Bit/Acetaminophen (NORCO 5-325 TABLET) 1 Each Tablet 1 TAB PO PRN Q6HRS PRN for PAIN, #14 TAB 0 Refills Prov: ROMARIO OJEDA DO 03/16/20 ROMARIO OJEDA DO March 16, 2020 07:31
[2020-03-16 08:05] LABS: BASO # 0.1 x10^3/uL (0.0-0.2); BASO % 1 % (0-3); EOS # 0.1 x10^3/uL (0.0-0.7); EOS % 1 % (0-3); HEMOGLOBIN 16.4 g/dL (13.0-17.5); LYMPH # 1.3 x10^3/uL (1.0-4.8); LYMPH % 16 % (24-48); MEAN CORPUSCULAR HEMOGLOBIN 31 pg (25-35); MEAN CORPUSCULAR HGB CONC 33 g/dL (31-37); MEAN CORPUSCULAR VOLUME 92 fL (79-100); MONO # 0.9 x10^3/uL (0.0-1.1); MONO % 11 % (0-9); NEUT # 5.8 x10^3uL (1.8-7.7); NEUT % 71 % (31-73); PLATELET COUNT 186 x10^3/uL (140-400); RED BLOOD COUNT 5.34 x10^6/uL (4.30-5.70); RED CELL DISTRIBUTION WIDTH 15.5 % (11.5-14.5); WHITE BLOOD COUNT 8.2 x10^3/uL (4.0-11.0)
[2020-03-16 08:15] LABS: CALCIUM 8.6 mg/dL (8.5-10.1); CREATININE 1.3 mg/dL (0.7-1.3); GFR 56.9
[2020-03-16 08:21] LABS: ALBUMIN 3.7 g/dL (3.4-5.0); ALBUMIN/GLOBULIN RATIO 1.3 (1.0-1.7); TOTAL BILIRUBIN 0.9 mg/dL (0.2-1.0); TOTAL PROTEIN 6.5 g/dL (6.4-8.2)
--- NOTE | 2020-03-16 08:50 | RAD ---
PQRS Compliance Statement: One or more of the following individualized dose reduction techniques were utilized for this examination: 1. Automated exposure control 2. Adjustment of the mA and/or kV according to patient size 3. Use of iterative reconstruction technique CT abdomen/pelvis without contrast 03/16/2020 7:17 AM INDICATION: Right flank pain with history of stones COMPARISON: CT abdomen/pelvis 11/04/2019 TECHNIQUE: Multiple axial CT images of the abdomen and pelvis were obtained without intravenous contrast. Coronal and sagittal reformats are provided. FINDINGS: There is minimal consolidative change at the right lung base which may represent subsegmental atelectasis. Evaluation of solid abdominal viscera is limited by lack of intravenous contrast. Right paraesophageal lymph node measures 7 mm, stable from 11/04/2019. There is diffuse hypoattenuation of the hepatic parenchyma suggestive of hepatic steatosis. No suspicious hepatic lesions are visualized. Spleen, bilateral adrenal glands, pancreas and gallbladder are normal in appearance. There is a duodenal diverticulum which measures 1.9 x 1.5 cm. Abdominal aorta is normal in course and caliber. No pathologically enlarged lymph nodes are identified in abdomen and pelvis. There is no free fluid or free intraperitoneal air. There is moderate colonic diverticulosis without adjacent inflammatory changes. Small and large bowel are normal in caliber. There is no evidence for bowel obstruction. There are no pericolonic inflammatory changes. A normal, nondilated appendix is visualized without adjacent inflammatory changes. There is a small fat-containing umbilical hernia measuring 1.5 cm. There is mild hazy attenuation within the root of the small bowel mesentery without pathologically enlarged lymph nodes. There is a 1.2 cm lamellated calculus in the right renal pelvis without significant hydronephrosis. There is an additional 1 mm nonobstructing calculus in the interpolar right kidney. The right ureter is nondilated. Urinary bladder is within normal limits in degree of distention, although there is mild lipomatous infiltration of the bladder wall. Prostate and seminal vesicles are normal. There are no suspicious osseous lesions identified. IMPRESSION: 1. There is a 1.2 cm calculus in the right renal pelvis without significant hydronephrosis or hydroureter. Consideration may be given for intermittent obstruction. There is an additional 1 mm nonobstructing calculus in interpolar right kidney. 2. Mild hazy attenuation in the root of small bowel mesentery appears new from prior examination and may be associated with mesenteric adenitis. 3-6 month follow-up CT abdomen/pelvis may be of benefit to assess for resolution. 3. Small duodenal diverticulum. 4. Diffuse hepatic steatosis. 5. There is subsegmental atelectasis versus developing infiltrate at the right lung base. Electronically signed by: Debi Montanez MD (03/16/2020 8:48 AM) [id number]
[2020-03-16 09:36] LABS: BACTERIA,URINE 0 /HPF (0-FEW); BILIRUBIN,URINE NEG (NEG); CLARITY,URINE HAZY; COLOR,URINE YELLOW; GLUCOSE,URINE NEG (NEG); NITRITE,URINE NEG (NEG); SQUAMOUS EPITHELIAL CELL,UR FEW /LPF; UROBILINOGEN,URINE 0.2 mg/dL (0.2 mg/dL)
[2020-03-16] MEDS ORDERED: HYDR-3165 PO (09:50)
[2020-03-16 10:10] VITALS: BP 172/110
== END 2020-03-16 10:10 | disposition home or self-care (01) ==
LOC: ER 07:00
DX: N20.0 Calculus of kidney (principal); M19.90 Unspecified osteoarthritis, unspecified site; E78.00 Pure hypercholesterolemia, unspecified; I10 Essential (primary) hypertension; F41.9 Anxiety disorder, unspecified; F17.210 Nicotine dependence, cigarettes, uncomplicated; Z88.0 Allergy status to penicillin; Z91.041 Radiographic dye allergy status; Z88.6 Allergy status to analgesic agent
CPT/HCPCS: 36415; 74176; 80053; 81001; 85025; 96374; 96375; 99284; J1885; J2270; J2405; J7030

== ENCOUNTER → 2021-06-08 | Outpatient (CLI) | payer OTHER ==
[~2021-06-08] MED LIST changes: +HYDR-3165 PO; -VANC1VIA3 MC; +VANC1VIA34 MC
--- NOTE | 2021-06-08 20:21 | RAD ---
CT abdomen and pelvis without contrast PQRS statement: CT scans at this facility use dose reduction including either automated exposure cont rol, iterative reconstructions, and /or weight based radiation dosing via mA and kV modification when appropriate to reduce radiation dose to as low as reasonably achievable. HISTORY: Left lower quadrant abdominal pain. History kidney stones. COMPARISON: CT abdomen and pelvis March 16, 2020. Abdomen findings: Lung bases unremarkable. Shallow lumbar disc bulges and facet spurring may contribu te to mild spinal canal stenoses and mild/moderate neural foraminal stenoses. Mild bilateral perineph isac edema is stable. No urinary calculi or hydronephrosis. The right renal calculus on the prior stud y is no longer present. Small duodenal diverticulum protrudes into the head of the pancreas. The panc reas is otherwise unremarkable. Adrenals, spleen, small accessory spleen, gallbladder and liver are n ormal. Mild hypodensity liver could indicate steatosis. Sigmoid diverticulosis, with focal diverticul itis with edema surrounding 2 diverticuli along the anterior wall of the proximal sigmoid colon, ther e is no pneumoperitoneum or abscess. No abdominal fluid. No bowel obstruction. Appendix is negative. 3 cm fatty umbilical abdominal wall hernia. Old healed right anterior rib fracture deformities. Pelvis findings: No bladder calculi. Bladder, prostate, rectum and bones are unremarkable. IMPRESSION: 1. Acute sigmoid colonic diverticulitis. No abscess or pneumoperitoneum evident. See above. 2. Appendix is negative. 3. Other incidental findings as described above. Electronically signed by: Aftab Dong MD (06/08/2021 8:19 PM) [facility]
[2021-06-08 20:41] LABS: BASO # 0.1 x10^3/uL (0.0-0.2); BASO % 1 % (0-3); EOS # 0.1 x10^3/uL (0.0-0.7); EOS % 1 % (0-3); HEMATOCRIT 50.8 % (39.0-53.0); HEMOGLOBIN 16.9 g/dL (13.0-17.5); LYMPH # 2.6 x10^3/uL (1.0-4.8); LYMPH % 24 % (24-48); MEAN CORPUSCULAR HEMOGLOBIN 31 pg (25-35); MEAN CORPUSCULAR HGB CONC 33 g/dL (31-37); MEAN CORPUSCULAR VOLUME 94 fL (79-100); MONO # 1.5 x10^3/uL (0.0-1.1); MONO % 14 % (0-9); NEUT # 6.7 x10^3uL (1.8-7.7); NEUT % 61 % (31-73); PLATELET COUNT 177 x10^3/uL (140-400); RED BLOOD COUNT 5.38 x10^6/uL (4.30-5.70)
[2021-06-08 20:49] LABS: ALBUMIN/GLOBULIN RATIO 1.1 (1.0-1.7); CALCIUM 9.2 mg/dL (8.5-10.1); CREATININE 1.4 mg/dL (0.7-1.3); GFR 52.1; TOTAL BILIRUBIN 0.7 mg/dL (0.2-1.0); TOTAL PROTEIN 7.7 g/dL (6.4-8.2)
[2021-06-08 20:50] LABS: BACTERIA,URINE 0 /HPF (0-FEW); BILIRUBIN,URINE NEG (NEG); CLARITY,URINE HAZY; COLOR,URINE YELLOW; GLUCOSE,URINE NEG (NEG); NITRITE,URINE NEG (NEG); SQUAMOUS EPITHELIAL CELL,UR FEW /LPF; UROBILINOGEN,URINE 0.2 mg/dL (0.2 mg/dL)
== END ==
LOC: LAB 19:56
PROVIDERS: ATTEND Family Medicine
DX: K57.32 Diverticulitis of large intestine without perforation or abscess without bleeding (principal); M48.061 Spinal stenosis, lumbar region without neurogenic claudication; K57.30 Diverticulosis of large intestine without perforation or abscess without bleeding; K42.9 Umbilical hernia without obstruction or gangrene
CPT/HCPCS: 36415; 74176; 80053; 81001; 85025